=== PATIENT | male | born 1950 | race Caucasian/White ===

== ENCOUNTER 2021-07-21 16:22 | Emergency (ER) | payer MEDICARE, OTHER ==
[~2021-07-21] VITALS: Ht 180.3 cm; Wt 129.9 kg
[2021-07-21] MEDS ORDERED: IV NORMAL SALINE 1,000ML 1,000 ML IV ONE ×2 (16:45)
[2021-07-21 16:59] LABS: BASO % 0 % (0-3); EOS % 0 % (0-3); HEMATOCRIT 46.3 % (39.0-53.0); LYMPH # 0.4 x10^3/uL (1.0-4.8); LYMPH % 3 % (24-48); MEAN CORPUSCULAR HEMOGLOBIN 31 pg (25-35); MEAN CORPUSCULAR HGB CONC 32 g/dL (31-37); MEAN CORPUSCULAR VOLUME 96 fL (79-100); MONO # 1.5 x10^3/uL (0.0-1.1); MONO % 10 % (0-9); NEUT # 13.7 x10^3uL (1.8-7.7); NEUT % 88 % (31-73); PLATELET COUNT 161 x10^3/uL (140-400); RED BLOOD COUNT 4.81 x10^6/uL (4.30-5.70); RED CELL DISTRIBUTION WIDTH 15.7 % (11.5-14.5); WHITE BLOOD COUNT 15.7 x10^3/uL (4.0-11.0)
[2021-07-21] MEDS ORDERED: MIDAZOLAM HCL 50 MG in IV NORMAL SALINE 50ML 50 ML IV ONE (17:00)
[2021-07-21] MEDS ORDERED: SUCCINYLCHOLINE 200 MG/10 ML VIAL. ONE (17:00)
[2021-07-21] MEDS ORDERED: MIDAZOLAM 50mg/50ml NS KIT 50 ML IV ONE (17:06)
[2021-07-21 17:10] LABS: CALCIUM 9.6 mg/dL (8.5-10.1); CREATININE 1.1 mg/dL (0.7-1.3); POTASSIUM 4.4 mmol/L (3.5-5.1)
[2021-07-21 17:16] LABS: ACETAMIN < 2.0 mcg/mL (10-30); ETHANOL < 10 mg/dL (0-10); SALIC < 2.8 mg/dL (2.8-20.0)
[2021-07-21] MEDS ORDERED: dilTIAZem 25 MG/5 ML VIAL IVP ONE ×3 (17:18→17:45)
--- NOTE | 2021-07-21 17:18 | RAD ---
Exam: CT head and cervical spine INDICATION: Fall, found unresponsive TECHNIQUE: Sequential axial images through the head and cervical spine were obtained without the admi nistration of IV contrast. Exposure: One or more of the following in the visualized dose reduction techniques were utilized for this examination: 1. Automated exposure control 2. Adjustment of the MA and/or KV according to patient size 3. Use of iterative of reconstructive technique Comparisons: None FINDINGS: Head: Extensive scattered areas of intraparenchymal hemorrhage greatest in the right frontal parietal and t emporal regions, with small areas of intraparenchymal hemorrhage scattered within the left frontal pa rietal regions. There is a small amount of intraventricular hemorrhage layering at the lateral ventri cles and extending down into the basal cistern. Additionally there is a small amount of extra-axial a nd subarachnoid hemorrhage overlying the right cerebral convexity at the region of the frontal lobe. There is extensive surrounding vasogenic edema. There is midline shift to the left measuring approxim ately 1.3 cm. No acute vascular territory infarction is identified. Coburn-white distinction is preserved. There is compression of the right lateral ventricle. Partial opacification of the right maxillary sinus, left sphenoid sinus and scattered ethmoid air gracy ls. Nondisplaced horizontally oriented fracture to the calvarium overlying the left frontal lobe seen best on coronal images 4 image 26 Cervical spine: Straightening of cervical spine which may positional. Vertebral body heights are well-maintained. Fracture to the cervical spine is not identified. Multilevel spondylotic change in cervical spine with degenerative disc disease greatest at C5-C6 and C6-C7. Groundglass opacity at the left upper lobe. IMPRESSION: 1. Extensive intracranial hemorrhages described above with intraparenchymal, subarachnoid, intravent ricular and extra-axial components. There is associated midline shift to the left of approximately 1. 3 cm. Etiology is nonspecific, favored to be posttraumatic however other causes such as hemorrhagic i nfarct, hemorrhagic metastasis is difficult to exclude. 2. Minimally displaced skull fracture overlying the left frontal region. 3. Negative CT C-spine for acute traumatic injury. FOR INTERNAL CODING PURPOSES Critical result: Findings discussed with HEIDI JACK MD at 07/21/2021 5:03 PM. RESULT CODE: (C) Electronically signed by: Hipolito Klein MD (07/21/2021 5:15 PM) [facility]
[2021-07-21 17:26] LABS: ALBUMIN 3.7 g/dL (3.4-5.0); ALBUMIN/GLOBULIN RATIO 0.8 (1.0-1.7); MAGNESIUM 2.3 mg/dL (1.8-2.4); PHOSPHORUS 2.6 mg/dL (2.6-4.7); TOTAL PROTEIN 8.1 g/dL (6.4-8.2)
--- NOTE | 2021-07-21 17:27 | RAD ---
Exam: CT of chest, abdomen and pelvis without contrast INDICATION: Fall, found unresponsive, intubated TECHNIQUE: Sequential axial images through the chest, abdomen and pelvis obtained without IV contrast . Sagittal and coronal reformatted images were reconstructed from the axial data and reviewed. Exposure: One or more of the following in the visualized dose reduction techniques were utilized for this examination: 1. Automated exposure control 2. Adjustment of the MA and/or KV according to patient size 3. Use of iterative of reconstructive technique Comparisons: None FINDINGS: Visualized portions of the thyroid are unremarkable. No enlarged mediastinal lymph nodes. Heart is mildly enlarged. Small pericardial effusion. Mild coronary artery calcifications. Thoracic a carlos has normal course and caliber. Pulmonary artery is not enlarged. Airways are patent. Patchy groundglass opacity noted predominantly throughout the left lung. There ar e strandy dependent airspace disease likely atelectasis. No pleural effusion or thickening. Evaluation of solid organs limited secondary to noncontrast technique. Liver, spleen, pancreas, gallbladder and adrenals are unremarkable. No perinephric inflammation or hydronephrosis. No renal or ureteral calculi are identified. Bladder is partially distended and not well evaluated. Prostate is not enlarged. Diverticulosis noted at the sigmoid colon without evidence of acute diverticulitis. Appendix is carlos l. No free intra-abdominal air or fluid. No obstruction. Abdominal aorta has normal course and caliber. No enlarged intra-abdominal lymph nodes are identified. No suspicious osseous lesions or acute fractures. IMPRESSION: 1. Patchy ground glass opacity in the lungs greater on the right which is nonspecific and may be inf ectious or inflammatory in etiology. 2. Small to moderate pericardial effusion. 3. Diverticulosis without evidence of acute diverticulitis. Electronically signed by: Hipolito Klein MD (07/21/2021 5:25 PM) [facility]
[2021-07-21 17:30] LABS: % LYMPHS 5 % (24-48); % MONOS 4 % (0-10); % SEGS 91 % (35-66); PLT ESTIMATE ADEQUATE (ADEQUATE)
[2021-07-21] MEDS ORDERED: dilTIAZem VIAL 125 MG in IV NORMAL SALINE 100ML 100 ML IV PRN (17:30)
[2021-07-21] MEDS ORDERED: MANNITOL 25% 12.5 G/50 ML VIAL. IV ONE (17:30)
[2021-07-21 17:39] LABS: BGAS PH 7.37 (7.35-7.46)
[2021-07-21] MEDS ORDERED: IV NORMAL SALINE 100ML 100 ML ONE (17:46)
[2021-07-21] MEDS ORDERED: ETOMIDATE 40 MG/20 ML VIAL. ONE (18:00)
[2021-07-21] MEDS ORDERED: MANNITOL 20% PREMIX 500 ML IV ONE (18:00)
[2021-07-21 18:04] LABS: INFLUENZA A PATIENT NEGATIVE (NEGATIVE); INFLUENZA B PATIENT NEGATIVE (NEGATIVE)
[2021-07-21 18:08] LABS: BARBITURATES NEG (NEG); BENZODIAZEPINES POS (NEG); CANNABINOIDS NEG (NEG); COCAINE NEG (NEG); METHADONE NEG (NEG); OPIATES NEG (NEG); PHENCYCLIDINE NEG (NEG)
[2021-07-21 18:09] LABS: AMPHETAMINE/METHAMPHETAMINE NEG (NEG)
--- NOTE | 2021-07-21 18:11 | PHYS DOC ---
General Adult EDM: Chief Complaint: ALTERED MENTAL STATUS HPI: HPI: Patient is a 71-year male brought in by EMS from home. Patient was found down and unresponsive in his bedroom next to his bed by EMS after a welfare check was called in by family. provide the history of the last time she talked to him was 2 days prior. She states the patient takes a blood thinner because he has a history of atrial fibrillation. History limited by patient's mental status Review of Systems: Review of Systems: All other systems within normal limits except for as noted in the HPI Current Medications: Current Meds: Current Medications Medications (Trade) Dose Ordered Sig/Zuly Start Time Stop Time Status Last Admin Dose Admin Diltiazem HCl (Cardizem Iv Push) 5 mg 1X ONCE 07/21/21 17:45 07/21/21 17:46 DC Diltiazem HCl (Cardizem) 125 mg STK-MED ONCE 07/21/21 17:46 07/21/21 17:46 DC Diltiazem HCl 125 mg/Sodium Chloride 125 ml @ 5 mls/hr CONT PRN 07/21/21 17:30 Mannitol 500 ml @ 1,000 mls/hr 1X ONCE 07/21/21 18:00 07/21/21 18:29 Mannitol (Mannitol) 125 g 1X ONCE 07/21/21 17:30 07/21/21 17:46 DC Midazolam HCl 50 ml @ As Directed STK-MED ONCE 07/21/21 17:06 07/21/21 17:06 DC Midazolam HCl 50 mg/Sodium Chloride 50 ml @ 1 mls/hr 1X ONCE 07/21/21 17:00 07/23/21 18:59 07/21/21 17:16 5 MLS/HR Sodium Chloride 100 ml @ As Directed STK-MED ONCE 07/21/21 17:46 07/21/21 17:46 DC Allergies: Allergies: Allergies Coded Allergies Type Severity Reaction Last Updated Verified No Known Drug Allergies 07/21/21 No Physical Exam: PE: Constitutional: Well developed, ill-appearing, minimally responsive HENT: Periorbital ecchymosis and edema worse on left. Eyes: Pupils equal, approximately 3 mm, sluggishly reactive to light, left- sided subconjunctival hemorrhag Neck: No rigidity, no step-off or deformity of C-spine Cardiovascular: Regular rate and rhythm, 3 to 4-second cap refill tachycardic, irregular rhythm [] Lungs & Thorax: Agonal, tachypneic respirations, bilateral coarse breath sounds Abdomen: Soft, nondistended. Skin: Warm, dry, multiple areas of ecchymosis especially on left anterior chest wall, mottling of lower extremities Back: Unremarkable, no step-off or deformity Extremities: No deformities Neurologic: GCS 6, eyes 1, voice 1, movement 4 Psychologic: Unable to assess Current Patient Data: Labs: Laboratory Tests Test 07/21/21 16:31 07/21/21 16:32 07/21/21 17:25 Glucose (Fingerstick) 113 mg/dL (70-99) H White Blood Count 15.7 x10^3/uL (4.0-11.0) H Red Blood Count 4.81 x10^6/uL (4.30-5.70) Hemoglobin 15.0 g/dL (13.0-17.5) Hematocrit 46.3 % (39.0-53.0) Mean Corpuscular Volume 96 fL (79-100) Mean Corpuscular Hemoglobin 31 pg (25-35) Mean Corpuscular Hemoglobin Concent 32 g/dL (31-37) Red Cell Distribution Width 15.7 % (11.5-14.5) H Platelet Count 161 x10^3/uL (140-400) Neutrophils (%) (Auto) 88 % (31-73) H Lymphocytes (%) (Auto) 3 % (24-48) L Monocytes (%) (Auto) 10 % (0-9) H Eosinophils (%) (Auto) 0 % (0-3) Basophils (%) (Auto) 0 % (0-3) Neutrophils # (Auto) 13.7 x10^3uL (1.8-7.7) H Lymphocytes # (Auto) 0.4 x10^3/uL (1.0-4.8) L Monocytes # (Auto) 1.5 x10^3/uL (0.0-1.1) H Eosinophils # (Auto) 0.0 x10^3/uL (0.0-0.7) Basophils # (Auto) 0.0 x10^3/uL (0.0-0.2) Segmented Neutrophils % 91 % (35-66) H Lymphocytes % 5 % (24-48) L Monocytes % 4 % (0-10) Platelet Estimate Adequate (ADEQUATE) Prothrombin Time 12.7 SEC (9.4-11.4) H Prothrombin Time INR 1.9 (0.9-1.1) H D-Dimer (Lois) 2.77 mg/L (0.00-0.50) H Sodium Level 141 mmol/L (136-145) Potassium Level 4.4 mmol/L (3.5-5.1) Chloride Level 103 mmol/L (98-107) Carbon Dioxide Level 28 mmol/L (21-32) Anion Gap 10 (6-14) Blood Urea Nitrogen 13 mg/dL (8-26) Creatinine 1.1 mg/dL (0.7-1.3) Estimated GFR (Cockcroft-Gault) 66.0 BUN/Creatinine Ratio 12 (6-20) Glucose Level 120 mg/dL (70-99) H Lactic Acid Level 4.1 mmol/L (0.4-2.0) *H Calcium Level 9.6 mg/dL (8.5-10.1) Phosphorus Level 2.6 mg/dL (2.6-4.7) Magnesium Level 2.3 mg/dL (1.8-2.4) Total Bilirubin 3.0 mg/dL (0.2-1.0) H Aspartate Amino Transferase (AST) 72 U/L (15-37) H Alanine Aminotransferase (ALT) 32 U/L (16-63) Alkaline Phosphatase 70 U/L (46-116) Creatine Kinase 1433 U/L (39-308) H Troponin I High Sensitivity 99 ng/L (4-75) H FS-Aiz-H-Type Natriuretic Peptide 3620 pg/mL (0-124) H Total Protein 8.1 g/dL (6.4-8.2) Albumin 3.7 g/dL (3.4-5.0) Albumin/Globulin Ratio 0.8 (1.0-1.7) L Salicylates Level < 2.8 mg/dL (2.8-20.0) L Salicylate Last Dose Date Unk Salicylate Last Dose Time Unk Acetaminophen Level < 2.0 mcg/mL (10-30) L Acetaminophen Last Dose Date Unk Acetaminophen Last Dose Time Unk Ethyl Alcohol Level < 10 mg/dL (0-10) Blood pH 7.37 (7.35-7.46) Blood Gas PCO2 44 mmHg (35-46) Blood Gas PO2 200 mmHg (71-100) H Blood Gas HCO3 25 mmol/L (21-28) Arterial Bld O2 Saturation (Calc) 100 % (92-99) H FiO2 70 % Vital Signs: Vital Signs Date Time Temp Pulse Resp B/P (MAP) Pulse Ox O2 Delivery O2 Flow Rate FiO2 07/21/21 17:50 100 Ventilator EKG: EKG: Atrial fibrillation with RVR, heart rate 173/min, left axis deviation, 1 PVC. No STEMI [] Radiology/Procedures: Radiology/Procedures: [address] [address] IMAGING REPORT Signed PATIENT: GLORIA WHARTON ACCOUNT: [id number] : 1950 LOCATION: ER AGE: 71 SEX: M EXAM STATUS: REG ER ORD. PHYSICIAN: HEIDI JACK MD REASON: Fall, found unresponsive, intubated PROCEDURE: CT HEAD AND CERVICAL SPINE WO Exam: CT head and cervical spine INDICATION: Fall, found unresponsive TECHNIQUE: Sequential axial images through the head and cervical spine were obtained without the administration of IV contrast. Exposure: One or more of the following in the visualized dose reduction techniques were utilized for this examination: 1. Automated exposure control 2. Adjustment of the MA and/or KV according to patient size 3. Use of iterative of reconstructive technique Comparisons: None FINDINGS: Head: Extensive scattered areas of intraparenchymal hemorrhage greatest in the right frontal parietal and temporal regions, with small areas of intraparenchymal hemorrhage scattered within the left frontal parietal regions. There is a small amount of intraventricular hemorrhage layering at the lateral ventricles and extending down into the basal cistern. Additionally there is a small amount of extra-axial and subarachnoid hemorrhage overlying the right cerebral convexity at the region of the frontal lobe. There is extensive surrounding vasogenic edema. There is midline shift to the left measuring approximately 1.3 cm. No acute vascular territory infarction is identified. Coburn-white distinction is preserved. There is compression of the right lateral ventricle. Partial opacification of the right maxillary sinus, left sphenoid sinus and scattered ethmoid air cells. Nondisplaced horizontally oriented fracture to the calvarium overlying the left frontal lobe seen best on coronal images 4 image 26 Cervical spine: Straightening of cervical spine which may positional. Vertebral body heights are well-maintained. Fracture to the cervical spine is not identified. Multilevel spondylotic change in cervical spine with degenerative disc disease greatest at C5-C6 and C6-C7. Groundglass opacity at the left upper lobe. IMPRESSION: 1. Extensive intracranial hemorrhages described above with intraparenchymal, subarachnoid, intraventricular and extra-axial components. There is associated midline shift to the left of approximately 1.3 cm. Etiology is nonspecific, favored to be posttraumatic however other causes such as hemorrhagic infarct, hemorrhagic metastasis is difficult to exclude. 2. Minimally displaced skull fracture overlying the left frontal region. 3. Negative CT C-spine for acute traumatic injury. FOR INTERNAL CODING PURPOSES Critical result: Findings discussed with HEIDI JACK MD at 07/21/2021 5:03 PM. RESULT CODE: (C) Electronically signed by: Hipolito Sanchez MD (07/21/2021 5:15 PM) [facility] DICTATED AND SIGNED BY: HIPOLITO SANCHEZ MD DATE: 07/21/211700 CC: HEIDI JACK MD; PCP,UNKNOWN ~MTH0 0 [][place] [address] IMAGING REPORT Signed PATIENT: GLORIA WHARTON ACCOUNT: [id number] : 1950 LOCATION: ER AGE: 71 SEX: M EXAM STATUS: REG ER ORD. PHYSICIAN: HEIDI JACK MD REASON: Fall, found unresponsive, intubated PROCEDURE: CT CHEST ABDOMEN PELVIS WO Exam: CT of chest, abdomen and pelvis without contrast INDICATION: Fall, found unresponsive, intubated TECHNIQUE: Sequential axial images through the chest, abdomen and pelvis obtai eliecer without IV contrast. Sagittal and coronal reformatted images were reconstructed from the axial data and reviewed. Exposure: One or more of the following in the visualized dose reduction techniques were utilized for this examination: 1. Automated exposure control 2. Adjustment of the MA and/or KV according to patient size 3. Use of iterative of reconstructive technique Comparisons: None FINDINGS: Visualized portions of the thyroid are unremarkable. No enlarged mediastinal lymph nodes. Heart is mildly enlarged. Small pericardial effusion. Mild coronary artery calcifications. Thoracic aorta has normal course and caliber. Pulmonary artery is not enlarged. Airways are patent. Patchy groundglass opacity noted predominantly throughout the left lung. There are strandy dependent airspace disease likely atelectasis. No pleural effusion or thickening. Evaluation of solid organs limited secondary to noncontrast technique. Liver, spleen, pancreas, gallbladder and adrenals are unremarkable. No perinephric inflammation or hydronephrosis. No renal or ureteral calculi are identified. Bladder is partially distended and not well evaluated. Prostate is not enlarged. Diverticulosis noted at the sigmoid colon without evidence of acute diverticulitis. Appendix is normal. No free intra-abdominal air or fluid. No obstruction. Abdominal aorta has normal course and caliber. No enlarged intra-abdominal lymph nodes are identified. No suspicious osseous lesions or acute fractures. IMPRESSION: 1. Patchy ground glass opacity in the lungs greater on the right which is nonspecific and may be infectious or inflammatory in etiology. 2. Small to moderate pericardial effusion. 3. Diverticulosis without evidence of acute diverticulitis. Electronically signed by: Hipolito Sanchez MD (07/21/2021 5:25 PM) [facility] DICTATED AND SIGNED BY: HIPOLITO SANCHEZ MD DATE: 07/21/21 1718 CC: HEIDI JACK MD; PCP,UNKNOWN ~MTH0 0 Heart Score: C/O Chest Pain: N/A Risk Factors: Risk Factors: DM, Current or recent (<one month) smoker, HTN, HLP, family history of CAD, obesity. Risk Scores: Score 0 - 3: 2.5% MACE over next 6 weeks - Discharge Home Score 4 - 6: 20.3% MACE over next 6 weeks - Admit for Clinical Observation Score 7 - 10: 72.7% MACE over next 6 weeks - Early Invasive Strategies Course & Med Decision Making: Course & Med Decision Making Pertinent Labs and Imaging studies reviewed. (See chart for details) Patient intubated on arrival due to low GCS and airway protection. Taken to CT emergently. Head bleed noted, patient returned to room and head of the bed elevated. Family contacted who would like him to go to [facility] or [facility]. Contacted [facility] and Dr. Valadez will accept patient for transfer as well as trauma surgeon. Surgeon recommends [facility] or [facility], inform that was not available at this facility. Discussed starting mannitol and mannitol was started prior to patient leaving facility. Patient take and via growing to [facility] on the [place] in critical condition. Patient was intubated in emergent fashion and no consent was obtained. Patient was [] sedated and paralyzed with etomidate and succinylcholine. A glide scope with a size 4 blade was used, cords were visualized and a size 8 point endotracheal tube was placed during first attempt. Endotracheal tube cuff was inflated and confirmation established by visualization of the cords passing the tubes, bilateral breath sounds, color change, and chest x-ray. [] Total critical care time: 80 The time involved in the performance of separately reportable/billable procedures was not counted toward critical care time. Due to a high probability of clinically significant, life-threatening deterioration the patient required a high level of care to intervene emergently and I personally spent this critical time directly and personally managing the patient. The critical care time included obtaining a history, examination of the patient, assessment of vital signs, ordering and review of studies, arranging urgent treatment with development of a management plan, evaluation of patient's response to treatment, frequent reassessment, and discussions with other providers and/or family members. Johanna Disclaimer: Johanna Disclaimer: This electronic medical record was generated, in whole or in part, using a voice recognition dictation system. Departure Departure: Impression: Primary Impression: Acute intra-cranial hemorrhage Disposition: 02 SHORT TERM HOSPITAL Condition: CRITICAL Referrals: PCP,UNKNOWN (PCP) HEIDI JACK MD Jul 21, 2021 18:11
[2021-07-21 18:21] LABS: CLARITY,URINE CLEAR; COLOR,URINE AMBER; GLUCOSE,URINE NEG (NEG); NITRITE,URINE NEG (NEG)
[2021-07-21 18:22] LABS: BACTERIA,URINE 0 /HPF (0-FEW); GRANULAR CASTS,URINE FEW /HPF; HYALINE CASTS, URINE FEW /HPF; RBC,URINE OCC /HPF (0-2); SQUAMOUS EPITHELIAL CELL,UR FEW /LPF; WBC,URINE OCC /HPF (0-4)
--- NOTE | 2021-07-21 18:23 | EKG ---
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
[2021-07-21 19:42] VITALS: BP 151/72
[2021-07-21] MEDS ORDERED: MIDAZOLAM HCL PF 5 MG/5 ML VIAL. IV ONE ×2 (19:45)
== END 2021-07-21 18:19 | disposition short-term general hospital (02) ==
LOC: ER 16:22
DX: S06.309A Unspecified focal traumatic brain injury with loss of consciousness of unspecified duration, initial encounter (principal); S20.212A Contusion of left front wall of thorax, initial encounter; S05.12XA Contusion of eyeball and orbital tissues, left eye, initial encounter; Z20.822 Contact with and (suspected) exposure to COVID-19; W18.39XA Other fall on same level, initial encounter; Y93.89 Activity, other specified; Y92.89 Other specified places as the place of occurrence of the external cause; Y99.8 Other external cause status
CPT/HCPCS: 31500; 36600; 51702; 70450; 71250; 72125; 74176; 80053; 80307; 80329; 81001; 82550; 82803; 82947; 83735; 83880; 84100; 84484; 85007; 85025; 85379; 85610; 87428; 93005; 96361; 96374; 99291; 99292; C9803; G0480; J0330; J2150; J2250; J3490; J7030; U0003; 94002; 96365